=== PATIENT | female | born 1940 | race African-American/Black ===

== ENCOUNTER 2025-03-16 17:33 | Emergency (ER) | payer OTHER ==
[~2025-03-16] VITALS: Ht 167.6 cm; Wt 57.0 kg
[2025-03-16] MEDS: LIDOCAINE 5% PATCH TOP SCH (20:09)
[2025-03-16] MEDS: KETOROLAC 15MG/ML VIAL IM ONE (20:11)
[2025-03-16] MEDS ORDERED: LIDO-53 TP (21:04)
[2025-03-16 21:40] VITALS: BP 126/77; PULSE 98; RESP 16; TEMP 36.5; O2SAT 99
== END 2025-03-16 21:34 | disposition home or self-care (01) ==
LOC: ER 17:33
DX: M17.12 Unilateral primary osteoarthritis, left knee (principal); M43.16 Spondylolisthesis, lumbar region; M48.061 Spinal stenosis, lumbar region without neurogenic claudication
CPT/HCPCS: 99284; 72100; 73562; 96372; J1885